=== PATIENT | female | born 1975 | race Caucasian/White ===

== ENCOUNTER 2019-09-14 08:57 | Observation (INO) | payer OTHER ==
[~2019-09-14] VITALS: Ht 160 cm; Wt 90.7 kg
[~2019-09-14 08:57] MED LIST: BUPIVACAINE-EPI 0.25%-1:200000 MPF 30 ML VIAL. INJ ONE; DEXAMETHASONE SOD PHOS 20 MG/5 ML VIAL. ONE; LIDOCAINE 1% PF 2 ML VIAL. ID PRN; LIDOCAINE 2% PF 5 ML VIAL. ONE; MIDAZOLAM HCL/PF 2 MG/2 ML VIAL. ONE; ONDANSETRON PF 4 MG/2 ML VIAL. IV PRN; ONDANSETRON PF 4 MG/2 ML VIAL. ONE; PROPOFOL 20 ML IV ONE; ROCURONIUM 50 MG/5 ML VIAL. ONE; fentaNYL PF VIAL 100 MCG/2 ML VIAL IV PRN; fentaNYL PF VIAL 100 MCG/2 ML VIAL ONE
[2019-09-14] MEDS ORDERED: LOSA1TAB12 PO (09:42)
[2019-09-14] MEDS ORDERED: CETI10TA22 PO (09:42)
[2019-09-14] MEDS ORDERED: SCOPOLAMINE 1.5MG PATCH. TD ONE (10:00)
[2019-09-14 10:04] LABS: BASO # 0.1 x10^3/uL (0.0-0.2); BASO % 1 % (0-3); EOS # 0.2 x10^3/uL (0.0-0.7); EOS % 2 % (0-3); HEMATOCRIT 40.6 % (36.0-47.0); HEMOGLOBIN 13.7 g/dL (12.0-15.5); LYMPH % 36 % (24-48); MEAN CORPUSCULAR HEMOGLOBIN 29 pg (25-35); MEAN CORPUSCULAR HGB CONC 34 g/dL (31-37); MEAN CORPUSCULAR VOLUME 85 fL (79-100); MONO # 0.7 x10^3/uL (0.0-1.1); MONO % 8 % (0-9); NEUT # 4.6 x10^3/uL (1.8-7.7); NEUT % 54 % (31-73); PLATELET COUNT 334 x10^3/uL (140-400); RED CELL DISTRIBUTION WIDTH 13.5 % (11.5-14.5); WHITE BLOOD COUNT 8.5 x10^3/uL (4.0-11.0)
[2019-09-14] MEDS: IV RINGERS,LACTATED 1000ML 1,000 ML IV SCH ×2 (10:28→15:23)
[2019-09-14] MEDS ORDERED: ceFAZolin 2GM PREMIX 2 GM/50 ML BAG IV ONE (12:00)
[2019-09-14] MEDS ORDERED: ESTROGENS, CONJ VAGINAL CREAM 30GM TUBE. ONE (12:05)
[2019-09-14] MEDS ORDERED: SURGICEL HEMOSTAT 4X8 EACH. ONE (12:05)
[2019-09-14] MEDS ORDERED: INDIGOTINDISULFONATE SODIUM 40 MG/5 ML AMPUL. ONE (12:05)
[2019-09-14] MEDS ORDERED: LIDOCAINE 1% PF 30 ML VIAL. ONE (12:05)
[2019-09-14] MEDS ORDERED: LIDOCAINE 1%/EPI 1:100,000 20 ML VIAL. ONE (12:10)
[2019-09-14] MEDS ORDERED: PHENYLEPHRINE in 0.9% NACL PF 1 MG/10 ML SYRINGE. IV ONE (12:55)
[2019-09-14] MEDS ORDERED: GLYCOPYRROLATE 1 MG/5 ML VIAL. ONE (13:10)
[2019-09-14] MEDS ORDERED: KETOROLAC 30 MG/ML VIAL. ONE (13:41)
[2019-09-14] MEDS ORDERED: SEVOFLURANE > 120 MINUTES. IH ONE (13:41)
[2019-09-14] MEDS ORDERED: NEOSTIGMINE METHYLSULFATE 5 MG/5 ML SYRINGE. ONE (14:27)
--- NOTE | 2019-09-14 14:35 | PDOC ---
BRIEF OPERATIVE NOTE Date: Sep 14, 2019 Pre-Op Diagnosis 1. Dysmenorrhea 2. Menorrhagia Post-Op Diagnosis Same Procedure Performed TLH & BSO Surgeon Dr. Lomas . Ic Designer [employer] Clothes Drier Repairer: Carola Anesthesia Type: General Blood Loss 150 ml Specimens Obtained cervix, uterus, kailee. fallopian tubes and ovaries Findings enlarged, uterus, kailee. ovarian cysts, nml fallopian tubes kailee. Complications none Operative Note see dictation MARIBELL LOMAS Jr, MD Sep 14, 2019 14:35
[2019-09-14] MEDS ORDERED: KETOROLAC 30 MG/ML VIAL. IV PRN (14:45)
[2019-09-14] MEDS ORDERED: SIMETHICONE 80 MG TAB.CHEW PO PRN (14:45)
[2019-09-14] MEDS ORDERED: 0.9 % SODIUM CHLORIDE 10 ML DISP.SYRIN. IV PRN (14:45)
[2019-09-14] MEDS ORDERED: CALCIUM CARBONATE 500 MG TAB.CHEW PO PRN (14:45)
[2019-09-14] MEDS ORDERED: PROCHLORPERAZINE 10 MG/2 ML VIAL. IV PRN (14:45)
[2019-09-14] MEDS ORDERED: ONDANSETRON PF 4 MG/2 ML VIAL. IV PRN (14:45)
[2019-09-14] MEDS ORDERED: diphenhydrAMINE HCL 25 MG CAPSULE PO PRN (14:45)
[2019-09-14] MEDS ORDERED: DEXTROSE 50% 25 GM / 50ML DISP.SYRIN. IV PRN (14:45)
[2019-09-14] MEDS ORDERED: diphenhydrAMINE 50 MG/ML VIAL IV PRN (14:45)
[2019-09-14] MEDS ORDERED: ZOLPIDEM 5 MG TABLET. PO PRN (14:45)
--- NOTE | 2019-09-14 15:01 | OP ---
DATE OF SURGERY: PREOPERATIVE DIAGNOSES: 1. Dysmenorrhea. 2. Menorrhagia. POSTOPERATIVE DIAGNOSES: 1. Dysmenorrhea. 2. Menorrhagia. PROCEDURE: TLH-BSO via da Estela robot. SURGEON: Maribell Lomas MD SOCK TURNER: Birgit. ANESTHESIA: GETA. ESTIMATED BLOOD LOSS: 150 mL. FINDINGS: Enlarged uterus, bilateral ovarian cysts. Normal fallopian tubes bilaterally. SUMMARY: A 44-year-old female with dysmenorrhea, menorrhagia, requiring hysterectomy. She was counseled on risks, benefits and expectations of TLH-BSO and voiced clear understanding to proceed. DESCRIPTION OF PROCEDURE: The patient was taken to surgery suite and placed in dorsal lithotomy position. She was prepped with ChloraPrep for abdominal prep and Betadine for vaginal prep. After adequate anesthesia, weighted speculum and curved Linda placed vaginally. Anterior lip of the cervix was grasped with single tooth tenaculum. The cervix was dilated with Hegar dilators up to size 7. The Nancy uterine manipulator was then placed. Single tooth tenaculum curved Linda and weighted speculum then removed. Attention was now placed on abdomen. Small transverse skin incision was made just above the umbilicus with a scalpel. The Veress needle was then placed through the supraumbilical incision site. The abdomen was allowed to insufflate up to 1-1/2 liters CO2 gas. The Veress needle was then removed. An 8 mm camera trocar was placed. Camera was positioned. The uterus was enlarged. Both fallopian tubes appeared normal. Both ovaries demonstrated 2-3 cm ovarian cyst. Two additional incisions were made in the left and right lower quadrant with a scalpel in which 8 mm trocars were placed. An accessory port was placed in the right upper quadrant, which was a 5-mm port. The robot was then docked in normal fashion. I then proceeded to the console. With the aid of vessel sealer and bipolar cautery, the right round ligament was coagulated and dissected. The right infundibulopelvic ligament was coagulated and dissected all the way down the broad ligament including the uterine artery. Same process took place with left adnexa. Bladder flap was created with blunt dissection along with the vessel sealer. The colpotomy was performed with the spatula at the level of the cervical ring. The cervix, uterus, bilateral fallopian tubes and bilateral ovaries were then removed. The vaginal cuff was reapproximated using V-Loc suture in a running fashion. Suction irrigation was utilized to verify good hemostasis. A small amount of normal saline was left in posterior cul-de-sac. The robot was undocked. Trocars were removed under direct visualization. The abdomen was allowed to deflate as much as possible. All 4 skin incisions were reapproximated using 4-0 Vicryl suture in subcuticular manner. A 0.25% Marcaine with epinephrine was injected at each incision site. Premarin soaked vaginal packing was placed vaginally. The patient tolerated the procedure well and was taken to recovery room in stable condition. Sponge and needle count correct x 3. MARIBELL LOMAS MD DR: CONNIE/mary JOB#: [id number] / [id number]
[2019-09-14] MEDS: PROCHLORPERAZINE 10 MG/2 ML VIAL. IV PRN ×2 (15:23→16:01)
[2019-09-14] MEDS ORDERED: OPIUM/BELLADONNA 30/16.2MG SUPP.RECT. PR PRN (15:35)
[2019-09-14 17:45] VITALS: BP 123/68
[2019-09-14 18:00] VITALS: BP 117/70
[2019-09-14 18:15] VITALS: BP 123/66
[2019-09-14 18:30] VITALS: BP 120/68
[2019-09-14 20:00] VITALS: BP 125/77
[2019-09-14] MEDS: IBUPROFEN 400 MG TABLET. PO PRN (21:00)
[2019-09-15] VITALS: BP 108/52
[2019-09-15] MEDS: GABAPENTIN 300 MG CAPSULE. PO SCH ×2 (00:25→06:00)
[2019-09-15 04:45] VITALS: BP 125/64
[2019-09-15] MEDS: IBUPROFEN 400 MG TABLET. PO PRN ×2 (04:46→11:00)
[2019-09-15 05:59] LABS: BASO # 0.1 x10^3/uL (0.0-0.2); BASO % 0 % (0-3); EOS % 0 % (0-3); HEMATOCRIT 38.3 % (36.0-47.0); HEMOGLOBIN 12.8 g/dL (12.0-15.5); LYMPH # 2.9 x10^3/uL (1.0-4.8); LYMPH % 17 % (24-48); MEAN CORPUSCULAR HEMOGLOBIN 29 pg (25-35); MEAN CORPUSCULAR HGB CONC 34 g/dL (31-37); MEAN CORPUSCULAR VOLUME 85 fL (79-100); MONO # 1.5 x10^3/uL (0.0-1.1); MONO % 9 % (0-9); NEUT # 12.3 x10^3/uL (1.8-7.7); NEUT % 74 % (31-73); PLATELET COUNT 328 x10^3/uL (140-400); RED BLOOD COUNT 4.49 x10^6/uL (3.50-5.40); RED CELL DISTRIBUTION WIDTH 13.7 % (11.5-14.5); WHITE BLOOD COUNT 16.7 x10^3/uL (4.0-11.0)
--- NOTE | 2019-09-15 13:11 | PDOC ---
SURGICAL PROGRESS NOTE Subjective Pt. feeling well. Pain controlled. Pt. ambulating in hallways, voding without difficulty, tolerating regular diet and positive flatus. Vital Signs Vital Signs Date Time Temp Pulse Resp B/P (MAP) Pulse Ox O2 Delivery O2 Flow Rate FiO2 09/15/19 04:45 98.3 125/64 (84) 98.3 09/15/19 00:00 67 18 96 Room Air 09/14/19 15:44 10 I&O Intake and Output 09/15/19 07:00 Intake Total 2600 ml Output Total 1875 ml Balance 725 ml Intake Oral 850 ml IV Total 1750 ml Output Urine Total 1725 ml Estimated Blood Loss 150 ml PATIENT HAS A JURADO: No General: Alert, Oriented X3, Cooperative HEENT: Atraumatic Lungs: Clear to auscultation Heart: Regular rate Abdomen: Normal bowel sounds, Soft, No tenderness, No masses Extremities: No edema Psych/Mental Status: Mental status NL Labs Laboratory Tests Test 09/14/19 09:36 09/14/19 09:45 09/15/19 05:40 Bedside Urine HCG, Qualitative Hcg negative (Negative) White Blood Count 8.5 x10^3/uL (4.0-11.0) 16.7 x10^3/uL (4.0-11.0) Red Blood Count 4.80 x10^6/uL (3.50-5.40) 4.49 x10^6/uL (3.50-5.40) Hemoglobin 13.7 g/dL (12.0-15.5) 12.8 g/dL (12.0-15.5) Hematocrit 40.6 % (36.0-47.0) 38.3 % (36.0-47.0) Mean Corpuscular Volume 85 fL (79-100) 85 fL (79-100) Mean Corpuscular Hemoglobin 29 pg (25-35) 29 pg (25-35) Mean Corpuscular Hemoglobin Concent 34 g/dL (31-37) 34 g/dL (31-37) Red Cell Distribution Width 13.5 % (11.5-14.5) 13.7 % (11.5-14.5) Platelet Count 334 x10^3/uL (140-400) 328 x10^3/uL (140-400) Neutrophils (%) (Auto) 54 % (31-73) 74 % (31-73) Lymphocytes (%) (Auto) 36 % (24-48) 17 % (24-48) Monocytes (%) (Auto) 8 % (0-9) 9 % (0-9) Eosinophils (%) (Auto) 2 % (0-3) 0 % (0-3) Basophils (%) (Auto) 1 % (0-3) 0 % (0-3) Neutrophils # (Auto) 4.6 x10^3/uL (1.8-7.7) 12.3 x10^3/uL (1.8-7.7) Lymphocytes # (Auto) 3.0 x10^3/uL (1.0-4.8) 2.9 x10^3/uL (1.0-4.8) Monocytes # (Auto) 0.7 x10^3/uL (0.0-1.1) 1.5 x10^3/uL (0.0-1.1) Eosinophils # (Auto) 0.2 x10^3/uL (0.0-0.7) 0.0 x10^3/uL (0.0-0.7) Basophils # (Auto) 0.1 x10^3/uL (0.0-0.2) 0.1 x10^3/uL (0.0-0.2) Laboratory Tests Test 09/15/19 05:40 White Blood Count 16.7 x10^3/uL (4.0-11.0) Red Blood Count 4.49 x10^6/uL (3.50-5.40) Hemoglobin 12.8 g/dL (12.0-15.5) Hematocrit 38.3 % (36.0-47.0) Mean Corpuscular Volume 85 fL (79-100) Mean Corpuscular Hemoglobin 29 pg (25-35) Mean Corpuscular Hemoglobin Concent 34 g/dL (31-37) Red Cell Distribution Width 13.7 % (11.5-14.5) Platelet Count 328 x10^3/uL (140-400) Neutrophils (%) (Auto) 74 % (31-73) Lymphocytes (%) (Auto) 17 % (24-48) Monocytes (%) (Auto) 9 % (0-9) Eosinophils (%) (Auto) 0 % (0-3) Basophils (%) (Auto) 0 % (0-3) Neutrophils # (Auto) 12.3 x10^3/uL (1.8-7.7) Lymphocytes # (Auto) 2.9 x10^3/uL (1.0-4.8) Monocytes # (Auto) 1.5 x10^3/uL (0.0-1.1) Eosinophils # (Auto) 0.0 x10^3/uL (0.0-0.7) Basophils # (Auto) 0.1 x10^3/uL (0.0-0.2) Assessment/Plan A: POD#1 s/p TLH & BSO P: D/c home. MARIBELL MESA Jr, MD Sep 15, 2019 13:11
[2019-09-15] MEDS ORDERED: DOCU-109 PO (13:13)
[2019-09-15] MEDS ORDERED: IBUP-1027 PO (13:13)
[2019-09-15] MEDS ORDERED: GABA300C18 PO (13:13)
--- NOTE | 2019-09-15 13:13 | DISCH ---
DISCHARGE INSTRUCTIONS Condition on Discharge Condition on Discharge: Stable Activity After Discharge Activity Instructions for Disc: Activity as tolerated Lifting Instructions after Dis: No heavy lifting Driving Instructions after Dis: No driving for 2 weeks Diet after Discharge Diet after Discharge: Regular Contacting the DROrlni after DC Call your doctor for: Concerns you may have Follow-Up Follow up with: Dr. Lomas in 3 wks. MARIBELL LOMAS Jr, MD Sep 15, 2019 13:13
[2019-09-15 14:39] VITALS: BP 139/69
--- NOTE | 2019-09-18 14:07 | PATHOLOGY ---
[facility] Accession Number: [id number] . 01 Material submitted: . uterus - UTERUS,CERVIX, BILATERAL TUBES AND OVARIES . 01 Clinical history: . None provided . 02 Diagnosis: Uterus, right fallopian tube and ovary, and left ovary, robotic laparoscopic hysterectomy with bilateral salping-oophorectomy: - Chronic cervicitis with few small nabothian cysts. - Secretory endometrium. - Myometrial hypertrophy (uterine weight 186 grams). - Congestion, subserosal cystic Warthard rests, and paratubal cyst of right fallopian tube. - Few cystic follicles of right ovary. - Absence of left fallopian tube. - Hemorrhagic luteal cyst and cystic follicles of left ovary. (JPM:silvia; 09/18/2019) S 09/18/2019 1342 Local . 02 Comment: There is no atypia or evidence of malignancy. . 02 Electronically signed: . Norberto Villanueva MD, Pathologist NPI- [id number] . 01 Gross description: . The specimen is received in formalin, labeled "Janee Bello, uterus, cervix, bilateral tubes and ovaries" and consists of a previously opened 186 g uterus with attached cervix measuring 10.2 x 6.8 x 5.4 cm. Attached is the right tubo-ovarian complex (12 g) consisting of a fimbriated fallopian tube measuring 5.2 cm in length and 0.5 cm in diameter attached to a smooth baker ovary (3.9 x 2.6 x 1.8 cm. Also attached is the left 15 g ovary measuring 4.3 x 3.8 x 2.0 cm. There is soft tissue attached to the left ovary but no grossly identifiable fallopian tube. No additional tissue is identified within the container. The uterine serosa is baker-brown, smooth, and focally hemorrhagic. The 1.0 cm cervical os is surrounded by a hemorrhagic granular brown ectocervical mucosa. It is bivalved revealing a smooth to grooved endocervical canal measuring 3.6 cm in length. The endometrial cavity is triangular measuring 5.4 cm in length and 4.0 cm in width which is lined by a lush pink-red endometrium measuring 0.1-0.2 cm. The myometrium is pink-baker and trabeculated measuring up to 3.0 cm with no masses or lesions. . The right fimbriated fallopian tube has numerous paratubal cysts measuring up to 0.5 cm with sectioning revealing a pinpoint well-defined central lumen. The right ovary shows baker cut surfaces with a few scattered uniloculated subcortical cysts measuring up to 0.4 cm. Sectioning the left ovary reveals a hemorrhagic cystic lutea (1.5 cm) with multiple additional subcortical clear fluid-filled cysts measuring up to 1.0 cm. The soft tissue attached to the left ovary reveals no identifiable lumen.- Court Bailiff Or Sheriff sections are submitted as follows: . A1: Anterior cervix A2: Posterior cervix A3: Anterior endomyometrium A4: Posterior endomyometrium A5: Right fallopian tube A6: Right ovary A7: Left ovary A8: Soft tissue attached to left ovary (SDY; 09/15/2019) . SYU/SYU 09/18/2019 1115 Local . 02 Pathologist provided ICD-10: N72, N85.2, N83.8, N83.202 . 02 CPT . 556359 Specimen Comment: A courtesy copy of this report has been sent to [phone] Specimen Comment: Report sent to Performed at: 01 [facility] [address], [place] [id number] MD Jethro New MD Phone: [phone] Performed at: 02 [facility] [address] [place], [place] [id number] MD Norberto Villanueva MD Phone: [phone]
== END 2019-09-15 14:42 | disposition home or self-care (01) ==
LOC: SURG 08:57 → 3 NORTH 17:10
PROVIDERS: ADMIT Obstetrics & Gynecology; ATTEND Obstetrics & Gynecology
DX: N92.0 Excessive and frequent menstruation with regular cycle (principal); N94.6 Dysmenorrhea, unspecified
CPT/HCPCS: 36415; 58571; 81025; 85025; 86850; 86900; 86901; 88307; A7015; G0378; G0379; J0696; J0780; J1100; J1885; J2001; J2250; J2370; J2405; J2704; J2710; J3010; J3490; J7030; J7120; S2900